=== PATIENT | male | born 1955 | race Caucasian/White ===

== ENCOUNTER → 2018-04-25 | Outpatient (CLI) | payer BC | LOC: COL.RAD 10:25 | DX: K21.9 Gastro-esophageal reflux disease without esophagitis (principal); N13.30 Unspecified hydronephrosis ==

== ENCOUNTER 2018-05-17 08:18 | Emergency (ER) | payer BC ==
[~2018-05-17] VITALS: Ht 190.5 cm; Wt 84.9 kg
[2018-05-17 08:23] VITALS: TEMP 98.4
[2018-05-17] MEDS ORDERED: ULTRAM 50MG TAB50 MG PO (08:37)
[2018-05-17 08:58] LABS: BASO # 0.1 (0.0-0.2); EOS # 0.1 (0.0-0.7); EOS % 2.1 % (0-4.0); GRAN # 3.1 (1.4-6.5); GRAN % 64.8 % (42.2-75.2); HEMATOCRIT 39.7 % (42.0-52.0); HEMOGLOBIN 13.6 g/dl (13.5-18.0); LYMPH # 0.7 (1.2-3.4); LYMPH % 14.3 % (20.0-51.0); MEAN CELL VOLUME 91 fl (80.0-100.0); MEAN CORPUSCULAR HEMOGLOBIN 31 pg (27.0-31.0); MEAN CORPUSCULAR HGB CONC 34 g/dl (33.0-37.0); MEAN PLATELET VOLUME 8.9 fl (7.4-10.4); MONO # 0.9 (0.1-0.6); MONO % 17.6 % (1.7-9.3); PLATELET COUNT 245 K/mm3 (130-400); RED BLOOD COUNT 4.36 M/mm3 (4.20-5.60); REDCELL DISTRIBUTION WIDTH-CV 12.2 % (11.5-14.5)
[2018-05-17 09:02] LABS: INR 1.1 (0.8-3.0); PROTHROMBIN TIME 12.3 SECONDS (9.7-12.8)
[2018-05-17 09:04] LABS: PARTIAL THROMBOPLASTIN TIME 32.8 SECONDS (26.0-37.0)
[2018-05-17 09:05] LABS: BILIRUBIN,TOTAL 0.7 mg/dL (0.0-1.0); CALCIUM 9.5 mg/dL (8.4-10.2); CREATININE, serum 1.07 mg/dL (0.66-1.25); MAGNESIUM 2.1 mg/dL (1.6-2.3); PHOSPHOROUS 3.8 mg/dL (2.5-4.5); POTASSIUM 4.1 mmol/L (3.4-5.0); TOTAL PROTEIN 7.1 gm/dL (6.4-8.2)
[2018-05-17 11:22] VITALS: BP 126/96; PULSE 68
== END 2018-05-17 11:22 | disposition home or self-care (01) ==
LOC: COL.ER 08:18
PROVIDERS: Emergency Medicine
DX: R59.1 Generalized enlarged lymph nodes (principal)
CPT/HCPCS: Q9967

== ENCOUNTER 2018-06-07 11:50 | Inpatient (IN) | payer BC ==
[~2018-06-07] VITALS: Ht 190.5 cm; Wt 77.2 kg
[~2018-06-07 11:50] MED LIST: ULTRAM 50MG TAB50 MG PO
[2018-06-07 12:48] LABS: BASO % 0.7 % (0.0-2.0); EOS % 0.7 % (0-4.0); GRAN # 4.3 (1.4-6.5); GRAN % 71.9 % (42.2-75.2); HEMATOCRIT 40.1 % (42.0-52.0); LYMPH # 0.8 (1.2-3.4); LYMPH % 13.1 % (20.0-51.0); MEAN CELL VOLUME 91 fl (80.0-100.0); MEAN CORPUSCULAR HEMOGLOBIN 32 pg (27.0-31.0); MEAN CORPUSCULAR HGB CONC 35 g/dl (33.0-37.0); MEAN PLATELET VOLUME 9.1 fl (7.4-10.4); MONO # 0.8 (0.1-0.6); MONO % 13.4 % (1.7-9.3); PLATELET COUNT 271 K/mm3 (130-400); RED BLOOD COUNT 4.39 M/mm3 (4.20-5.60); REDCELL DISTRIBUTION WIDTH-CV 12.4 % (11.5-14.5)
[2018-06-07 12:50] LABS: INR 1.1 (0.8-3.0); PROTHROMBIN TIME 12.1 SECONDS (9.7-12.8)
[2018-06-07 12:53] LABS: ALANINE AMINOTRANSFERASE 26 U/L (21-72); ALBUMIN 4.1 gm/dL (3.5-5.0); ALKALINE PHOSPHATASE 59 U/L (50-136); ANION GAP 10 mmol/L (7-16); AST,SGOT 27 U/L (15-37); BILIRUBIN,TOTAL 0.7 mg/dL (0.0-1.0); BLOOD UREA NITROGEN 15 mg/dL (9-20); CALCIUM 9.7 mg/dL (8.4-10.2); CARBON DIOXIDE 27 mmol/L (22-30); CHLORIDE 95 mmol/L (98-107); CREATININE, serum 1.07 (0.66-1.25); GLUCOSE 120 mg/dL (74-106); POTASSIUM 3.9 mmol/L (3.4-5.0); SODIUM 132 mmol/L (137-145); TOTAL PROTEIN 7.3 gm/dL (6.4-8.2)
[2018-06-07 13:24] LABS: TROPONIN-I < 0.012 ng/mL (0.000-0.035)
[2018-06-07 15:42] VITALS: BP 140/98; PULSE 80; TEMP 98
--- NOTE | 2018-06-07 16:42 | NUR ---
Patient arrives via ED cart with KD Tapia. Bedside report recieved. Patient attached to monitors, Dr. Pepe called and notified of patient arrival, and initial vitals and assessment as charted. at bedside. Care assumed.
--- NOTE | 2018-06-07 16:55 | NUR ---
ECHO completed by tech.
--- NOTE | 2018-06-07 17:00 | NUR ---
Dr. Pepe rounds at this time.
[2018-06-07] MEDS ORDERED: NORCO 325 MG-51 TAB PO (17:52)
[2018-06-07] MEDS ORDERED: MIRALAX PA17 GM/Dose PO (17:54)
[2018-06-07] MEDS ORDERED: COLACE 100100 MG/CAP PO (17:55)
--- NOTE | 2018-06-07 18:33 | NUR ---
Report called to KD Valles.
--- NOTE | 2018-06-07 18:40 | NUR ---
PT TRANSFERRED VIA WHEELCHAIR TO MEDICAL ROOM 318. PT'S AT BEDSIDE. PT'S BELONGINGS TRANSFERRED WITH PATIENT. SHERRI YI PRESENT UPON PATIENT'S ARRIVAL.
[2018-06-07 18:41] VITALS: BP 140/98; PULSE 78; TEMP 98.2
--- NOTE | 2018-06-07 18:45 | NUR ---
pATIENT ARRIVED TO ROOM 318 FROM ICU. IN BED WITH FAMILY AT BEDSIDE.
[2018-06-07 19:23] VITALS: BP 132/81; PULSE 82; TEMP 98.8
--- NOTE | 2018-06-07 20:41 | NUR ---
Patient resting in bed. Assessment completed- lungs clear, abdominal sounds active, pulses +3, cap refill <3 seconds, denies pain. Reports some nausea, but tolerating ice chips. Took evening med with sip of water. No needs at this time.
[2018-06-07 23:16] VITALS: BP 135/84; PULSE 85; TEMP 98.6
[2018-06-08 03:05] VITALS: BP 123/88; PULSE 88; TEMP 98.7
--- NOTE | 2018-06-08 05:00 | NUR ---
Pt slept for most of the shift. No reports of pain. VSS. No needs at this time.
[2018-06-08 06:16] LABS: BASO % 0.2 % (0.0-2.0); GRAN # 4.5 (1.4-6.5); GRAN % 79.2 % (42.2-75.2); HEMATOCRIT 38.2 % (42.0-52.0); HEMOGLOBIN 13.2 g/dl (13.5-18.0); LYMPH # 0.7 (1.2-3.4); LYMPH % 12.3 % (20.0-51.0); MEAN CELL VOLUME 90 fl (80.0-100.0); MEAN CORPUSCULAR HEMOGLOBIN 31 pg (27.0-31.0); MEAN CORPUSCULAR HGB CONC 35 g/dl (33.0-37.0); MONO # 0.5 (0.1-0.6); MONO % 7.9 % (1.7-9.3); PLATELET COUNT 267 K/mm3 (130-400); RED BLOOD COUNT 4.25 M/mm3 (4.20-5.60); REDCELL DISTRIBUTION WIDTH-CV 12.5 % (11.5-14.5)
[2018-06-08 06:29] LABS: CALCIUM 9.5 mg/dL (8.4-10.2); CHOLESTEROL RISK RATIO 3.5; CREATININE, serum 0.95 (0.66-1.25); POTASSIUM 4.2 mmol/L (3.4-5.0)
--- NOTE | 2018-06-08 06:51 | NUR ---
report given to KD Mendoza. Pt given ice chips.
--- NOTE | 2018-06-08 07:00 | NUR ---
pt. resting in bed. assessment as charted. Telemetry on. INT Left forearm clean, dry, and no redness noted.Pt. reports "numbness" to left hand and left foot. Bilat pulses palpable to posterior pedal pulses. Pt demonstrates purposeful movement of extremities. Denies C/O pain. Rt eye spontaneous blinking noted.
--- NOTE | 2018-06-08 07:15 | NUR ---
Report received from KD Stern. Pt in bed resting, denies needs, will continue to monitor.
[2018-06-08 08:05] VITALS: BP 130/90; PULSE 85; TEMP 98.2
--- NOTE | 2018-06-08 09:08 | NUR ---
Assessment charted. Pt has left sided facial droop, R eyelid blinks often but no other abnormalities. States he is pain free for the first time in 2 months d/t prednisone given in ER. INT to LF. ST came and evaluated and recommended regular diet if no tests needed. Will contineu to monitor.
--- NOTE | 2018-06-08 09:30 | NUR ---
No longer reports of any "Numbness" no change in assessment. Pt in low fowlers position.
[2018-06-08 10:51] VITALS: BP 125/84; PULSE 81; TEMP 98.3
--- NOTE | 2018-06-08 11:04 | NUR ---
First visit from the cereal chemist. No needs right now.
--- NOTE | 2018-06-08 13:02 | NUR ---
SW attended clinical rounds. SW then met with the patient and patient's , Josefa, to discuss discharge plan. The patient lives in [place] with his . He reports independence with ADLs and has a cane, walker, and crutches. The patient's PCP is Dr. Natalie Valverde and he receives his medications at [facility]. He reports no difficulties obtaining his meds. The patient does not have advanced directives, but he was interested in obtaining a form for DPOA-HC. SW provided. The patient plans to return home with his upon discharge. No identified needs at this time, but SW to continue to follow.
[2018-06-08 15:59] VITALS: BP 118/71; PULSE 83; TEMP 97.9
--- NOTE | 2018-06-08 18:05 | NUR ---
Dr. 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 Called number with Dr. Schneider, assisted with gathering all pertinent information requested. Will fax to number provided. Called Dr. Catherine with updated situation. Will give bedside shift report to nightshift nruse who will resume care.
--- NOTE | 2018-06-08 18:54 | NUR ---
Called Dr. Schneider and Shayla and notified them that [facility] is cappped tonight and cannot accept any further patients.
--- NOTE | 2018-06-08 20:59 | NUR ---
PT WAS AMBULATING IN ROOM AND HR WENT UP TO 130, BUT THAT HAS BEEN HAPPENING ALL DAY WHEN PT AMBULATES. PT BACK IN BED AND GAVE COOL CLOTH FOR RIGHT EYE, BECAUSE PT STATES THAT EYE IS NOT CLOSING AND STAYING OPEN AND HAVING TROUBLE CLOSING IT. PT DENIES ANY PAIN OR DISCOMFORT AND PT STILL HAS FACIAL DROOP. PT IS AWARE OF SPINAL TAP TOMORROW. NO FURTHER NEEDS AT THIS TIME. CALL LIGHT WITHIN REACH.
[2018-06-08 21:39] VITALS: BP 130/75; PULSE 80; TEMP 98.4
[2018-06-09] VITALS (7 sets, daily range): BP systolic 113–135; BP diastolic 69–79; PULSE 70–79; TEMP 97.9–98.5
--- NOTE | 2018-06-09 04:00 | NUR ---
UNEVENTFUL NIGHT, PT SLEEP/RESTING WITH NO S/S OF PAIN OR DISCOMFORT NOTED, RESP EVEN AND UNLABORED, AND CALL LIGHT WITHIN REACH.
--- NOTE | 2018-06-09 08:34 | NUR ---
Pt is awake and A/Ox4, denies any pain or discomfort. Saline lock to left FA is free of complications. Pt updated on plan of care, expressed understanding. Left sided facial droop noted otherwise neuro checks are unremarkable. Denies any other needs.
--- NOTE | 2018-06-09 08:35 | NUR ---
Alan [employer] student assisting with AM cares. Agree with her shift assessment of patient.
--- NOTE | 2018-06-09 09:30 | NUR ---
Tele called stating pt's HR was in the 130s. Pt up walking to restroom. HR now in the 80s once resting.
--- NOTE | 2018-06-09 09:38 | NUR ---
AREN Hall notified of increased HR while ambulating
--- NOTE | 2018-06-09 10:24 | NUR ---
Pt to lumbar puncture at this time.
--- NOTE | 2018-06-09 11:04 | NUR ---
Pt returned from lumbar puncture. Made aware of bedrest until 1300 by structured cabling technician. Sipping on ensure. Denies any other needs.
[2018-06-09 11:24] LABS: GLUCOSE,CSF 69 mg/dL (40-70); TOTAL PROTEIN,CSF 73 mg/dL (15-45)
[2018-06-09 11:56] LABS: CSF APPEARANCE CLEAR; CSF COLOR COLORLESS
[2018-06-09 11:57] LABS: CSF MONONUCLEAR 100 % (70-100); CSF POLYMORPHONUCLEAR 0 % (0-6); CSF RBC 11 /mm3 (0-0)
--- NOTE | 2018-06-09 13:47 | NUR ---
Primary nurse was assisted with [id number] patient care by [employer] student Alan Ledezma and [employer] instructor Laura Glasgow RN-.
--- NOTE | 2018-06-09 14:45 | NUR ---
Report given to KD Fox
--- NOTE | 2018-06-09 14:58 | NUR ---
REPORT RECEIVED FROM KD PLUMMER.
--- NOTE | 2018-06-09 16:51 | NUR ---
PT RESTING IN BED AT THIS TIME.REPORTS FEELING BETTER AT TAKING A SHOWER.ALL MEDS GIVEN.DENIES ANY NEEDS AT THIS TIME.CALL LIGHT IN REACH
--- NOTE | 2018-06-09 16:55 | NUR ---
left sided droop remains.patient right eye blinks often.denies any needs at this time.call light in reach
--- NOTE | 2018-06-09 19:10 | NUR ---
REPORT GIVEN TO KD ARIAS.
--- NOTE | 2018-06-09 21:15 | NUR ---
Patient resting in bed, given eye patch for left eye. Assessment completed- lungs clear, abdominal sounds active, pulses +3, cap refill <3 seconds, alert and oriented x4, independent in room, denies pain. Given a chocolate ice cream. NO further needs at this time.
[2018-06-10 03:55] VITALS: BP 117/77; PULSE 71; TEMP 98.6
--- NOTE | 2018-06-10 05:25 | NUR ---
Pt slept for most of the night. VSS, no reports of pain, neuro checks unchanged. No needs at this time.
--- NOTE | 2018-06-10 07:15 | NUR ---
Report received from KD Stern. Pt in bed resting, denies needs, will continue to monitor.
--- NOTE | 2018-06-10 07:34 | NUR ---
REPORT GIVEN TO KD DOTY. PATIENT HAS NO NEEDS AT THIS TIME.
[2018-06-10 08:04] VITALS: BP 132/87; PULSE 68; TEMP 97.8
--- NOTE | 2018-06-10 10:14 | NUR ---
Assessment charted. Pt feeling fine, similar to wednesday, minimal pain, ok to walk with assistance. L facial droop persists and L eye dry from inability to close. Waiting for eye patch to be delivered, will continue to monitor.
[2018-06-10 10:30] LABS: CD4 CD8 Ratio 3.26 (1.00-2.90); CD4 Helper T Cell 55.1 % (29.0-59.0); CD8 Suppressor T Cells 16.9 % (18.0-36.0)
[2018-06-10] MEDS ORDERED: PREDNISONE20 MG PO (11:11)
[2018-06-10] MEDS ORDERED: PROTONIX 40MG T40 MG PO (11:13)
[2018-06-10] MEDS ORDERED: ARTIFICIAL TEA3.5 GM OP (11:15)
[2018-06-10 12:00] VITALS: BP 134/66; PULSE 77; TEMP 98.4
--- NOTE | 2018-06-10 13:13 | NUR ---
Discharge teaching completed at this time. Pt recieved dishcharge packet with f/u appointments, new scripts sent to pharmacy. Pt verbalized understanding. Will discharge home shortly via w/c when is here. Will leave with all bleongings, will drive home. Criteria met.
--- NOTE | 2018-06-10 13:30 | NUR ---
CHELLY and CHELLY student attended clinical rounds. The hospitalist recommended outpatient PT/ST and the patient was in agreeance. CHELLY then followed up with the patient and discussed outpatient therapy center options. The patient chose the [facility] on [facility], due to them being the only therapy center to also have ST. CHELLY then contacted Fara at the [facility] on [facility] and set up a PT appointment for 06/[address] appointment for 06/20 at 1330. CHELLY informed the community service organization director and faxed the patient's discharge orders to the [facility]. The patient is to discharge back home today, 06/10. No additional needs at this time.
--- NOTE | 2018-06-10 13:32 | NUR ---
Ghazala carrillo was assisted by [phone] patient care by [employer] [facility] Alan Ledezma and [employer] instructor Laura Glasgow RN-TIFFANY.
== END 2018-06-10 13:30 | disposition home or self-care (01) | DRG 197 ==
LOC: COL.ER 11:50 → MEDICAL 13:51 → ICU 13:51 → MEDICAL 19:00
PROVIDERS: Emergency Medicine; Physician Assistant; Psychiatry & Neurology Neurology; ADMIT Hospitalist
PROC: 009U3ZX Drainage of Spinal Canal, Percutaneous Approach, Diagnostic (ICD-10-PCS; principal; 2018-06-09)
DX: D86.89 Sarcoidosis of other sites (principal); E44.0 Moderate protein-calorie malnutrition; G51.0 Bell's palsy; K59.03 Drug induced constipation; T40.605A Adverse effect of unspecified narcotics, initial encounter; Z68.21 Body mass index [BMI] 21.0-21.9, adult
CPT/HCPCS: OP; 99233-AI; 99239; A9585; G0378; J1650; J7512

== ENCOUNTER 2018-07-14 14:00 | Outpatient (RCR) | payer BC ==
[~2018-07-14 14:00] MED LIST changes: +ARTIFICIAL TEA3.5 GM OP; +COLACE 100100 MG/CAP PO; +MIRALAX PA17 GM/Dose PO; +NORCO 325 MG-51 TAB PO; +PREDNISONE20 MG PO; +PROTONIX 40MG T40 MG PO
== END 2018-08-31 14:07 | disposition home or self-care (01) ==
LOC: MKS.ESL.PT 14:00
DX: D72.89 Other specified disorders of white blood cells (principal); Z74.09 Other reduced mobility; M54.6 Pain in thoracic spine; M25.511 Pain in right shoulder; R20.0 Anesthesia of skin